=== PATIENT | female | born 1980 | race Caucasian/White ===

== ENCOUNTER 2017-10-09 09:42 | Day surgery (SDC) | payer BC ==
[2017-10-08 08:21] VITALS: BMI 23.1
[~2017-10-09 09:42] MED LIST: LACTATED RINGERS 1,000 ML IV SCH; LIDOCAINE 1% 20 ML VIAL (10MG/ML) FOR IV START INTRADERMA PRN
[2017-10-09 09:58] VITALS: RESP 16
[2017-10-09] MEDS ORDERED: LIDOCAINE 1% INJ 10MG/ML (20 ML MDV) ONE (11:06)
[2017-10-09] MEDS ORDERED: PROPOFOL 10 MG/ML 20 ML VIAL IV ONE (11:06)
[2017-10-09 12:02] VITALS: BP 108/63; PULSE 62
--- NOTE | 2017-10-09 12:09 | P.PCN ---
Date of Procedure: 10/09/17 Procedure(s) Performed: BRIEF HISTORY: Patient is a 37-year-old pleasant white female, scheduled for an elective colonoscopy as a part of evaluation of long-standing history of ulcerative colitis diagnosed in June 1999. 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 Resume her prednisone 40 mg daily and was having problems between 7-8 loose to watery in consistency with occasional rectal bleeding. She is also on Asacol 2 tablets 3 times daily. He scheduled for a colonoscopy as a part of surveillance and also to assess the degree and severity of ulcerative colitis. PROCEDURE PERFORMED: Colonoscopy with random biopsies. PREOPERATIVE DIAGNOSIS: Long-standing history of ulcerative colitis. IV sedation per Anesthesia. PROCEDURE: After informed consent was obtained, the patient, was brought into the endoscopy unit. IV sedation was administered by Anesthesia under continuous monitoring. Digital rectal examination was normal. Initially the Olympus CF- 160 flexible video colonoscope was then inserted in the rectum, gradually advanced into the cecum without any difficulty. Careful examination was performed as the scope was gradually being withdrawn. Ileocecal valve and the appendiceal orifice were visualized and appeared normal. Prep was excellent. Mucosa of the cecum, ascending colon, transverse colon, descending colon, appeared normal. There was mild colitis with mucosal erythema and some granularity and spontaneous oozing sigmoid colon, and rectum assistant at surgery with mild proctosigmoiditis and random biopsies were done from these areas. Retroflexion was performed in the rectum and no lesions were seen. The patient tolerated the procedure well. IMPRESSION: Mild proctosigmoiditis. Rest of the colon appeared normal No evidence of colorectal neoplasia RECOMMENDATIONS: Findings of this examination were discussed with the patient as well as his her family. She was advised to follow with the biopsy results. She will continue with to taper the prednisone by 5 mg every 2 weeks. She will remain on Asacol 2 tablets 3 times daily. She will be seen in office in 2 weeks and will discuss about Biologics if she continues to remain steroid dependent..
== END 2017-10-09 12:28 | disposition home or self-care (01) ==
LOC: ORWHC2ENDO 09:42
PROVIDERS: ATTEND Internal Medicine Gastroenterology
DX: K52.9 Noninfective gastroenteritis and colitis, unspecified (principal); G43.909 Migraine, unspecified, not intractable, without status migrainosus; Z79.52 Long term (current) use of systemic steroids; Z79.899 Other long term (current) drug therapy; Z79.891 Long term (current) use of opiate analgesic; Z79.4 Long term (current) use of insulin
CPT/HCPCS: 81025; 88305; 45380; J2001; J2704